=== PATIENT | male | born 1990 | race Caucasian/White ===

== ENCOUNTER 2017-02-23 08:29 | Emergency (ER) | payer OTHER ==
[2017-02-23] MEDS ORDERED: PANTOPRAZOLE 40 MG/10 ML VIAL IVP STA (08:36)
[2017-02-23] MEDS ORDERED: SODIUM CHLORIDE 0.9% 500 ML IV STA (08:36)
[2017-02-23] MEDS ORDERED: KETOROLAC 30 MG/ML 1 ML VIAL IVP STA (08:48)
--- NOTE | 2017-02-23 09:00 | ED ---
Abdominal Pain HPI - General Chief Complaint: Abdominal Pain Stated Complaint: ABDOMINAL PAIN Time Seen by Provider: 02/23/17 08:36 Source: patient, RN notes reviewed Mode of arrival: ambulatory Limitations: no limitations - History of Present Illness Initial Comments: This a 26 year old female presents emergency Department chief complaint of upper abdominal pain. Patient states pain started yesterday states it's primarily epigastric and midabdominal area that radiates to his back when it comes and goes. Patient states he had a little bit nausea no vomiting denies any diarrhea constipation. Patient has a history of peptic ulcer disease does had no prior EGD studies. Patient states that pain is really not affected by and eat or drink. Patient states that nothing seems to improve his symptoms. Patient denies fever, chills, chest pain or shortness of breath. Denies any dysuria or hematuria. - Related Data Previous Rx's Medication Instructions Recorded Acetaminophen-Codeine 300-30mg 1 tab PO Q4H PRN #20 tablet 02/23/17 [Tylenol #3] Omeprazole 40 mg PO DAILY #14 capsule. 02/23/17 Allergies Allergy/AdvReac Type Severity Reaction Status Date / Time propoxyphene Allergy Rash/Hives Verified 02/23/17 08:40 [From Adam] Review of Systems ROS Statement: Those systems with pertinent positive or pertinent negative responses have been documented in the HPI. ROS Other: All systems not noted in ROS Statement are negative. Past Medical History Additional Past Medical History / Comment(s): gastric ulcer, constipation History of Any Multi-Drug Resistant Organisms: None Reported Past Surgical History: No Surgical Hx Reported Past Psychological History: Anxiety, Bipolar Smoking Status: Former smoker Past Alcohol Use History: Occasional Past Drug Use History: None Reported General Exam Limitations: no limitations General appearance: alert, in no apparent distress Head exam: Present: atraumatic, normocephalic, normal inspection Respiratory exam: Present: normal lung sounds bilaterally. Absent: respiratory distress, wheezes, rales, rhonchi, stridor Cardiovascular Exam: Present: regular rate, normal rhythm, normal heart sounds. Absent: systolic murmur, diastolic murmur, rubs, gallop, clicks GI/Abdominal exam: Present: soft, tenderness (Mild to moderate epigastric and midabdominal tenderness), normal bowel sounds. Absent: distended, guarding, rebound, rigid Back exam: Absent: CVA tenderness (R), CVA tenderness (L) Skin exam: Present: warm, dry, intact, normal color. Absent: rash Course Vital Signs 02/23/17 08:31 Temperature 97.5 F L Pulse Rate 85 Respiratory 18 Rate Blood Pressure 142/96 O2 Sat by Pulse 96 Oximetry Medical Decision Making - Medical Decision Making 26 year old male present emergency department for epigastric, abdominal pain. Patient's labwork reviewed no acute abnormality x-ray shows no acute abnormality. Patient felt somewhat better after antiemetics and antacids. Patient is advised that he is follow-up with GI for EGD, was started on omeprazole 40 mg and explained that he'll get short course pain medication secondary to his pain at this time. Return parameters were discussed. - Lab Data Result diagrams: 02/23/17 08:46 02/23/17 08:46 Lab Results 02/23/17 02/23/17 02/23/17 Range/Units 08:46 08:46 09:30 WBC 7.7 (3.8-10.6) k/uL RBC 5.20 (4.30-5.90) m/uL Hgb 17.0 (13.0-17.5) gm/dL Hct 49.9 (39.0-53.0) % MCV 96.0 (80.0-100.0) fL MCH 32.8 (25.0-35.0) pg MCHC 34.1 (31.0-37.0) g/dL RDW 12.2 (11.5-15.5) % Plt Count 305 (150-450) k/uL Neutrophils % 68 % Lymphocytes % 20 % Monocytes % 6 % Eosinophils % 3 % Basophils % 1 % Neutrophils # 5.2 (1.3-7.7) k/uL Lymphocytes # 1.6 (1.0-4.8) k/uL Monocytes # 0.5 (0-1.0) k/uL Eosinophils # 0.2 (0-0.7) k/uL Basophils # 0.0 (0-0.2) k/uL Sodium 140 (137-145) mmol/L Potassium 4.4 (3.5-5.1) mmol/L Chloride 105 (98-107) mmol/L Carbon Dioxide 23 (22-30) mmol/L Anion Gap 12 mmol/L BUN 16 (9-20) mg/dL Creatinine 0.86 (0.66-1.25) mg/dL Est GFR (MDRD) Af Amer >60 (>60 ml/min/1.73 sqM) Est GFR (MDRD) Non-Af >60 (>60 ml/min/1.73 sqM) Glucose 110 H (74-99) mg/dL Calcium 10.0 (8.4-10.2) mg/dL Total Bilirubin 0.8 (0.2-1.3) mg/dL AST 27 (17-59) U/L ALT 39 (21-72) U/L Alkaline Phosphatase 55 (38-126) U/L Total Protein 7.6 (6.3-8.2) g/dL Albumin 4.6 (3.5-5.0) g/dL Amylase 67 (30-110) U/L Lipase 109 (23-300) U/L Urine Color Yellow Urine Appearance Clear (Clear) Urine pH 6.0 (5.0-8.0) Ur Specific Reedy 1.022 (1.001-1.035) Urine Protein Negative (Negative) Urine Glucose (UA) Negative (Negative) Urine Ketones Negative (Negative) Urine Blood Negative (Negative) Urine Nitrite Negative (Negative) Urine Bilirubin Negative (Negative) Urine Urobilinogen <2.0 (<2.0) mg/dL Ur Leukocyte Esterase Negative (Negative) Disposition Clinical Impression: Epigastric pain, Gastritis Disposition: HOME SELF-CARE Condition: Stable Instructions: Gastritis (ED) Additional Instructions: Please return to the Emergency Department if symptoms worsen or any other concerns. Prescriptions: Acetaminophen-Codeine 300-30mg [Tylenol #3] 1 tab PO Q4H PRN #20 tablet PRN Reason: pain Omeprazole 40 mg PO DAILY #14 capsule.dr Referrals: None,Stated [Primary Care Provider] - 1-2 days Catie Abdul MD [STAFF PHYSICIAN] - 1-2 days Time of Disposition: 10:08
[2017-02-23 09:05] LABS: Basophils % (A) 1 %; Eosinophils # (A) 0.2 k/uL (0-0.7); Eosinophils % (A) 3 %; HCT 49.9 % (39.0-53.0); Lymphocytes # (A) 1.6 k/uL (1.0-4.8); Lymphocytes % (A) 20 %; MCH 32.8 pg (25.0-35.0); MCHC 34.1 g/dL (31.0-37.0); Mean Platelet Volume 6.9; Monocytes # (A) 0.5 k/uL (0-1.0); Monocytes % (A) 6 %; Neutrophils # (A) 5.2 k/uL (1.3-7.7); Neutrophils % (A) 68 %; Platelet Count 305 k/uL (150-450); RDW 12.2 % (11.5-15.5); WBC 7.7 k/uL (3.8-10.6)
[2017-02-23 09:17] LABS: ALT 39 U/L (21-72); AST 27 U/L (17-59); Albumin 4.6 g/dL (3.5-5.0); Alkaline Phosphatase 55 U/L (38-126); Amylase 67 U/L (30-110); Anion Gap 12 mmol/L; Blood Urea Nitrogen 16 mg/dL (9-20); Carbon Dioxide 23 mmol/L (22-30); Chloride 105 mmol/L (98-107); Glucose 110 mg/dL (74-99); Lipase 109 U/L (23-300); Potassium 4.4 mmol/L (3.5-5.1); Sodium 140 mmol/L (137-145); Total Bilirubin 0.8 mg/dL (0.2-1.3); Total Protein 7.6 g/dL (6.3-8.2)
--- NOTE | 2017-02-23 09:19 | XR ---
EXAMINATION TYPE: XR KUB DATE OF EXAM: 02/23/2017 COMPARISON: NONE HISTORY: Pain TECHNIQUE: One view abdominal series FINDINGS: The osseous structures are intact. The bowel gas pattern is nonspecific. Lung bases are clear. Calc ifications in the pelvis nonspecific. IMPRESSION: 1. Nonspecific abdomen.
[2017-02-23] MEDS ORDERED: MORPHINE SULFATE 2 MG/ML SYRINGE IVP ONE (09:36)
[2017-02-23] MEDS ORDERED: ONDANSETRON 4 MG/2 ML VIAL IVP STA (09:36)
[2017-02-23 09:55] LABS: Appearance,Urine Clear (Clear); Bilirubin,Urine Negative (Negative); Blood,Urine Negative (Negative); Color,Urine Yellow; Glucose,Urine (UA) Negative (Negative); Ketones,Urine Negative (Negative); Leukocyte Esterase,Urine Negative (Negative); Nitrite,Urine Negative (Negative); Protein,Urine Negative (Negative); Specific Gravity,Urine 1.022 (1.001-1.035); Urobilinogen,Urine <2.0 mg/dL (<2.0)
[2017-02-23] MEDS ORDERED: MAG HYDROX/AL HYDROX/SIMETH 30 ML, HYOSCYAMINE ELIXIR 10 ML, CIMETIDINE HCL 300 MG PO STA ×3 (10:06)
[2017-02-23 10:09] VITALS: BP 139/85; PULSE 67; RESP 19; TEMP 98.3
== END 2017-02-23 10:20 | disposition home or self-care (01) ==
LOC: EC 08:29
DX: Z88.5 Allergy status to narcotic agent (principal); Z87.891 Personal history of nicotine dependence; K29.70 Gastritis, unspecified, without bleeding
CPT/HCPCS: 36415; 80053; 82150; 83690; 85025; 81003; 74018; 99284; 96374; 96375 ×3; 96361; J2405; J1885; J2270; C9113

== ENCOUNTER 2019-07-03 09:37 | Emergency (ER) | payer OTHER ==
[2019-07-03 09:43] VITALS: PULSE 75; RESP 18; TEMP 98.2
[2019-07-03] MEDS ORDERED: KETOROLAC 30 MG/ML 1 ML VIAL IM STA (09:55)
[2019-07-03] MEDS ORDERED: CYCLOBENZAPRINE 10 MG TAB PO STA (09:55)
--- NOTE | 2019-07-03 10:04 | ED ---
Neck Injury/Pain HPI - General Chief Complaint: Neck Pain/Injury Stated Complaint: stiff neck Time Seen by Provider: 07/03/19 09:47 Mode of arrival: ambulatory Limitations: no limitations - History of Present Illness Initial Comments: Patient is a 28-year-old male presenting to emergency Department with chief complaint of neck pain. Patient reports the pain began Monday and this has persisted. Patient reports the day before the onset of pain was working on his car and was standing on upper physician for prolonged periods of time. Patient reports the pain is exacerbated with left rotation but not so much with flexion and extension. Patient reports difficulty sleeping because he is not able to find a comfortable position. Patient reports taking [id number] analgesics minimal improvement. Patient denies any night sweats fevers or chills. Denies neck stiffness. Denies any headaches, visual changes or generalized malaise. - Related Data Previous Rx's Medication Instructions Recorded Acetaminophen-Codeine 300-30mg 1 tab PO Q4H PRN #20 tablet 02/23/17 [Tylenol #3] Omeprazole 40 mg PO DAILY #14 capsule. 02/23/17 Cyclobenzaprine [Flexeril] 10 mg PO TID PRN #15 tab 07/03/19 Allergies Allergy/AdvReac Type Severity Reaction Status Date / Time propoxyphene Allergy Rash/Hives Verified 07/03/19 09:43 [From Adam] Review of Systems ROS Statement: Those systems with pertinent positive or pertinent negative responses have been documented in the HPI. ROS Other: All systems not noted in ROS Statement are negative. Past Medical History Past Medical History: Hypertension Additional Past Medical History / Comment(s): gastric ulcer, constipation History of Any Multi-Drug Resistant Organisms: None Reported Past Surgical History: No Surgical Hx Reported Past Psychological History: Anxiety, Bipolar Smoking Status: Former smoker Past Alcohol Use History: Occasional Past Drug Use History: None Reported General Exam Limitations: no limitations General appearance: alert, in no apparent distress Head exam: Present: atraumatic, normocephalic, normal inspection Eye exam: Present: normal appearance, PERRL, EOMI Pupils: Present: normal accommodation ENT exam: Present: normal exam, normal oropharynx, mucous membranes moist Neck exam: Present: normal inspection, tenderness (Personal tenderness.), full ROM. Absent: meningismus, lymphadenopathy, other (No signs of nuchal rigidity. Negative Brudzinski sign.) Respiratory exam: Present: normal lung sounds bilaterally. Absent: respiratory distress, wheezes, rales Cardiovascular Exam: Present: regular rate, normal rhythm, normal heart sounds Extremities exam: Present: normal inspection, full ROM Back exam: Present: normal inspection, full ROM Neurological exam: Present: alert, oriented X3 Psychiatric exam: Present: normal affect, normal mood Skin exam: Present: warm, dry, intact, normal color Course Vital Signs 07/03/19 07/03/19 07/03/19 09:41 10:01 11:30 Temperature 98.2 F Pulse Rate 75 75 Respiratory 18 18 Rate Blood Pressure 143/103 130/84 O2 Sat by Pulse 100 98 98 Oximetry Medical Decision Making - Medical Decision Making Patient is a 28-year-old male presenting to emergency Department with chief complaint of back pain. On exam patient does have bilateral paraspinal cervical tenderness. Patient is exacerbated with right rotation. No midline cervical tenderness. No masses fever or chills. Negative Brudzinski sign. No signs of meningismus or nuchal rigidity. Patient was given Flexeril and Toradol. Reev aluation patient reports improvement in symptoms. X-ray of the cervical spine is unremarkable. I suspect the patient suffered a cervical strain of the neck secondary to recent working on his car. Advised the patient to apply warm compress an alternate between Tylenol and Motrin for pain control. He'll be discharged with Flexeril. Advised about possible side effects of medication. Return parameters thoroughly discussed with patient was understanding and agreeable. Case discussed with physician. Disposition Clinical Impression: Strain of neck muscle, Neck pain Disposition: HOME SELF-CARE Condition: Stable Instructions (If sedation given, give patient instructions): Cervical Sprain (ED) Additional Instructions: Apply warm compress in the region of tenderness. Take prescribed medication as directed. Return to emergency department if symptoms worsen. Alternate between Tylenol Motrin for pain control. Prescriptions: Cyclobenzaprine [Flexeril] 10 mg PO TID PRN #15 tab PRN Reason: Muscle Spasm Is patient prescribed a controlled substance at d/c from ED?: No Referrals: Audi Aaron MD [Primary Care Provider] - 1-2 days Time of Disposition: 11:10
--- NOTE | 2019-07-03 10:49 | XR ---
EXAMINATION TYPE: XR cervical spine comp DATE OF EXAM: 07/03/2019 TECHNIQUE: Frontal, lateral, oblique, swimmers, and open mouth view of the cervical spine are obtaine d. HISTORY: cervical pain posterior neck pain for 2 days. COMPARISON: None FINDINGS: The cervical spine is only successfully visualized from C1 through superior C7 level despi te attempted swimmer's view due to significant osseous overlap, it is somewhat straightened in align ent without evidence of acute fracture or dislocation. Suboptimal evaluation of C7 vertebra and C7-T1 disc space. The pre-vertebral soft tissue appears within normal limits. The C1-C2 articulation is within normal limits on the open mouth view. Vertebral body heights and disc space heights are fairly well maintained. Mild anterior spurring C5-C6 and C6-C7 levels. The oblique images are within normal limits. Overlying soft tissue is unremarkable. IMPRESSION: As above.
[2019-07-03] MEDS ORDERED: CYCLOBENZAPRINE 10MG STARTER 3 TAB BTL PO STA (11:09)
[2019-07-03 11:31] VITALS: BP 130/84
== END 2019-07-03 11:34 | disposition home or self-care (01) ==
LOC: EC 09:37
DX: S16.1XXA Strain of muscle, fascia and tendon at neck level, initial encounter (principal); Z88.5 Allergy status to narcotic agent; Z87.891 Personal history of nicotine dependence
CPT/HCPCS: 72050; 99283; 96372; J1885

== ENCOUNTER 2020-02-26 16:23 | Emergency (ER) | payer OTHER ==
[2020-02-26] MEDS ORDERED: SODIUM CHLORIDE 0.9% 500 ML 500 ML IV STA (17:07)
--- NOTE | 2020-02-26 17:16 | ED ---
General Adult HPI - General Source: patient Mode of arrival: ambulatory Limitations: no limitations <Keshia Nye - Last Filed: 02/26/20 18:57> <Bin Daniel - Last Filed: 02/26/20 20:43> - General Chief complaint: Shortness of Breath Stated complaint: sob Time Seen by Provider: 02/26/20 17:02 - History of Present Illness Initial comments: 29-year-old male presenting today for chief complaint of too many whippets. Patient states he uses nitrous oxide from cooking spray for making whipped cream. he states that he used a lot more today than usual. he states he was out of it. he didnt even remember his girlfriend driving him here and doesnt want evaluation. Patient states she just feels sleepy he states he feels slightly short of breath denies chest pain chest pressure nausea vomiting headache dizzi ness. Girlfriend denies any seizure activity but states that when he doesnt do the whip its he get shakiness. Patient denies any other drug use he denies alcohol ingestion. He denies a follows head injury. Patient denies any visual changes weakness sensation deficits Denies parathesias. patient has no additional complaints. he appears sleepy but easily aroused on history taking, answering questions appropriately. (Keshia Nye) - Related Data Home Medications Medication Instructions Recorded Confirmed ARIPiprazole [Abilify] 5 mg PO DAILY 02/26/20 02/26/20 Atorvastatin [Lipitor] 20 mg PO DAILY 02/26/20 02/26/20 Benazepril HCl [Lotensin] 20 mg PO DAILY 02/26/20 02/26/20 QUEtiapine [SEROquel] 50 mg PO HS 02/26/20 02/26/20 Venlafaxine HCl ER [Effexor Xr] 150 mg PO DAILY 02/26/20 02/26/20 amLODIPine [Norvasc] 5 mg PO DAILY 02/26/20 02/26/20 Allergies Allergy/AdvReac Type Severity Reaction Status Date / Time propoxyphene Allergy Rash/Hives Verified 02/26/20 18:19 [From Becki-Robbie] Review of Systems ROS Other: All systems not noted in ROS Statement are negative. <Keshia Nye - Last Filed: 02/26/20 18:57> ROS Other: All systems not noted in ROS Statement are negative. <Bin Daniel Darek - Last Filed: 02/26/20 20:43> ROS Statement: Those systems with pertinent positive or pertinent negative responses have been documented in the HPI. Past Medical History Past Medical History: Hypertension Additional Past Medical History / Comment(s): gastric ulcer, constipation, History of Any Multi-Drug Resistant Organisms: None Reported Past Surgical History: No Surgical Hx Reported Past Psychological History: Anxiety, Bipolar Smoking Status: Former smoker Past Alcohol Use History: Occasional Past Drug Use History: None Reported <Keshia Nye - Last Filed: 02/26/20 18:57> General Exam Limitations: no limitations <Keshia Nye - Last Filed: 02/26/20 18:57> - General Exam Comments Initial Comments: General: The patient is awake and alert, in no distress Eye: Pupils are equal, round and reactive to light, extra-ocular movements are intact. No nystagmus. There is normal conjunctiva bilaterally. No signs of icterus. Ears, nose, mouth and throat: There are moist mucous membranes and no oral lesions. Neck: The neck is supple, there is no tenderness or JVD. Cardiovascular: There is a regular rate and rhythm. No murmur, rub or gallop is appreciated. Respiratory: Lungs are clear to auscultation, respirations are non-labored, breath sounds are equal. No wheezes, stridor, rales, or rhonchi. Gastrointestinal: Soft, non-distended, non-tender abdomen without masses or organomegaly noted. There is no rebound or guarding present. Musculoskeletal: Normal ROM, no tenderness. Strength 5/5. Sensation intact. Radial and DP pulses equal bilaterally 2+. Neurological: A&O x 3. CN II-XII intact, There are no obvious motor or sensory deficits. Coordination appears grossly intact. Speech is normal. Skin: Skin is warm and dry and no rashes or lesions are noted. Psychiatric: Cooperative, appropriate mood & affect, normal judgment. (Keshia Nye) Course Vital Signs 02/26/20 02/26/20 02/26/20 16:45 18:05 19:00 Temperature 99.2 F Pulse Rate 106 H 90 73 Respiratory 24 22 20 Rate Blood Pressure 126/69 112/99 134/89 O2 Sat by Pulse 98 98 99 Oximetry 02/26/20 20:26 Temperature 98.4 F Pulse Rate 83 Respiratory 22 Rate Blood Pressure 137/99 O2 Sat by Pulse 100 Oximetry Medical Decision Making - Lab Data Result diagrams: 02/26/20 17:13 02/26/20 17:13 <Keshia Nye - Last Filed: 02/26/20 18:57> - Lab Data Result diagrams: 02/26/20 17:13 02/26/20 17:13 <Bin Daniel - Last Filed: 02/26/20 20:43> - Medical Decision Making poison control contacted, recommended supportive treatment. no additional recommendations. pt will be monitored in ER. He was evaluated by attending who took patient sign out at end of shift, Dr Daniel. (Keshia Nye) Patient here continues to be briefly by Alejandrina Howard PA. Patient is here today for difficulty in breathing. Patient abuses nitrous oxide in the form of whippets. Vital signs upon arrival are within acceptable limits. Labs are unremarkable. poison control had no recommendations, patient observed in ER for 4 hours. patient in stable medical condition. patient will be discharged. (Bin Daniel) - Lab Data Lab Results 02/26/20 02/26/20 02/26/20 Range/Units 17:13 17:13 17:13 WBC 5.6 (3.8-10.6) k/uL RBC 3.75 L (4.30-5.90) m/uL Hgb 13.3 (13.0-17.5) gm/dL Hct 37.1 L (39.0-53.0) % MCV 99.0 (80.0-100.0) fL MCH 35.4 H (25.0-35.0) pg MCHC 35.8 (31.0-37.0) g/dL RDW 14.2 (11.5-15.5) % Plt Count 338 (150-450) k/uL MPV 7.1 Neutrophils % 57 % Lymphocytes % 30 % Monocytes % 6 % Eosinophils % 3 % Basophils % 2 % Neutrophils # 3.2 (1.3-7.7) k/uL Lymphocytes # 1.7 (1.0-4.8) k/uL Monocytes # 0.3 (0-1.0) k/uL Eosinophils # 0.2 (0-0.7) k/uL Basophils # 0.1 (0-0.2) k/uL PT 10.6 (9.0-12.0) sec INR 1.0 (<1.2) APTT 21.4 L (22.0-30.0) sec VBG pH (7.31-7.41) VBG pCO2 (37-51) mmHg VBG HCO3 (24-28) mmol/L Sodium 143 (137-145) mmol/L Potassium 3.9 (3.5-5.1) mmol/L Chloride 111 H (98-107) mmol/L Carbon Dioxide 23 (22-30) mmol/L Anion Gap 9 mmol/L BUN 14 (9-20) mg/dL Creatinine 0.89 (0.66-1.25) mg/dL Est GFR (CKD-EPI)AfAm >90 (>60 ml/min/1.73 sqM) Est GFR (CKD-EPI)NonAf >90 (>60 ml/min/1.73 sqM) Glucose 112 H (74-99) mg/dL Plasma Lactic Acid Danie (0.7-2.0) mmol/L Calcium 9.0 (8.4-10.2) mg/dL Magnesium 1.8 (1.6-2.3) mg/dL Total Bilirubin 0.3 (0.2-1.3) mg/dL AST 33 (17-59) U/L ALT 69 H (4-49) U/L Alkaline Phosphatase 54 (38-126) U/L Troponin I (0.000-0.034) ng/mL Total Protein 6.7 (6.3-8.2) g/dL Albumin 4.0 (3.5-5.0) g/dL Salicylates mg/dL Urine Opiates Screen (NotDetected) Ur Oxycodone Screen (NotDetected) Urine Methadone Screen (NotDetected) Ur Propoxyphene Screen (NotDetected) Acetaminophen ug/mL Ur Barbiturates Screen (NotDetected) U Tricyclic Antidepress (NotDetected) Ur Phencyclidine Scrn (NotDetected) Ur Amphetamines Screen (NotDetected) U Methamphetamines Scrn (NotDetected) U Benzodiazepines Scrn (NotDetected) Urine Cocaine Screen (NotDetected) U Marijuana (THC) Screen (NotDetected) Serum Alcohol <10 mg/dL 02/26/20 02/26/20 02/26/20 Range/Units 17:13 17:13 17:32 WBC (3.8-10.6) k/uL RBC (4.30-5.90) m/uL Hgb (13.0-17.5) gm/dL Hct (39.0-53.0) % MCV (80.0-100.0) fL MCH (25.0-35.0) pg MCHC (31.0-37.0) g/dL RDW (11.5-15.5) % Plt Count (150-450) k/uL MPV Neutrophils % % Lymphocytes % % Monocytes % % Eosinophils % % Basophils % % Neutrophils # (1.3-7.7) k/uL Lymphocytes # (1.0-4.8) k/uL Monocytes # (0-1.0) k/uL Eosinophils # (0-0.7) k/uL Basophils # (0-0.2) k/uL PT (9.0-12.0) sec INR (<1.2) APTT (22.0-30.0) sec VBG pH 7.44 H (7.31-7.41) VBG pCO2 33 L (37-51) mmHg VBG HCO3 22 L (24-28) mmol/L Sodium (137-145) mmol/L Potassium (3.5-5.1) mmol/L Chloride (98-107) mmol/L Carbon Dioxide (22-30) mmol/L Anion Gap mmol/L BUN (9-20) mg/dL Creatinine (0.66-1.25) mg/dL Est GFR (CKD-EPI)AfAm (>60 ml/min/1.73 sqM) Est GFR (CKD-EPI)NonAf (>60 ml/min/1.73 sqM) Glucose (74-99) mg/dL Plasma Lactic Acid Danie 1.8 (0.7-2.0) mmol/L Calcium (8.4-10.2) mg/dL Magnesium (1.6-2.3) mg/dL Total Bilirubin (0.2-1.3) mg/dL AST (17-59) U/L ALT (4-49) U/L Alkaline Phosphatase (38-126) U/L Troponin I <0.012 (0.000-0.034) ng/mL Total Protein (6.3-8.2) g/dL Albumin (3.5-5.0) g/dL Salicylates mg/dL Urine Opiates Screen (NotDetected) Ur Oxycodone Screen (NotDetected) Urine Methadone Screen (NotDetected) Ur Propoxyphene Screen (NotDetected) Acetaminophen ug/mL Ur Barbiturates Screen (NotDetected) U Tricyclic Antidepress (NotDetected) Ur Phencyclidine Scrn (NotDetected) Ur Amphetamines Screen (NotDetected) U Methamphetamines Scrn (NotDetected) U Benzodiazepines Scrn (NotDetected) Urine Cocaine Screen (NotDetected) U Marijuana (THC) Screen (NotDetected) Serum Alcohol mg/dL 02/26/20 02/26/20 Range/Units 19:27 19:41 WBC (3.8-10.6) k/uL RBC (4.30-5.90) m/uL Hgb (13.0-17.5) gm/dL Hct (39.0-53.0) % MCV (80.0-100.0) fL MCH (25.0-35.0) pg MCHC (31.0-37.0) g/dL RDW (11.5-15.5) % Plt Count (150-450) k/uL MPV Neutrophils % % Lymphocytes % % Monocytes % % Eosinophils % % Basophils % % Neutrophils # (1.3-7.7) k/uL Lymphocytes # (1.0-4.8) k/uL Monocytes # (0-1.0) k/uL Eosinophils # (0-0.7) k/uL Basophils # (0-0.2) k/uL PT (9.0-12.0) sec INR (<1.2) APTT (22.0-30.0) sec VBG pH (7.31-7.41) VBG pCO2 (37-51) mmHg VBG HCO3 (24-28) mmol/L Sodium (137-145) mmol/L Potassium (3.5-5.1) mmol/L Chloride (98-107) mmol/L Carbon Dioxide (22-30) mmol/L Anion Gap mmol/L BUN (9-20) mg/dL Creatinine (0.66-1.25) mg/dL Est GFR (CKD-EPI)AfAm (>60 ml/min/1.73 sqM) Est GFR (CKD-EPI)NonAf (>60 ml/min/1.73 sqM) Glucose (74-99) mg/dL Plasma Lactic Acid Danie (0.7-2.0) mmol/L Calcium (8.4-10.2) mg/dL Magnesium (1.6-2.3) mg/dL Total Bilirubin (0.2-1.3) mg/dL AST (17-59) U/L ALT (4-49) U/L Alkaline Phosphatase (38-126) U/L Troponin I (0.000-0.034) ng/mL Total Protein (6.3-8.2) g/dL Albumin (3.5-5.0) g/dL Salicylates <1.0 mg/dL Urine Opiates Screen Not Detected (NotDetected) Ur Oxycodone Screen Not Detected (NotDetected) Urine Methadone Screen Not Detected (NotDetected) Ur Propoxyphene Screen Not Detected (NotDetected) Acetaminophen <10.0 ug/mL Ur Barbiturates Screen Not Detected (NotDetected) U Tricyclic Antidepress Not Detected (NotDetected) Ur Phencyclidine Scrn Not Detected (NotDetected) Ur Amphetamines Screen Not Detected (NotDetected) U Methamphetamines Scrn Not Detected (NotDetected) U Benzodiazepines Scrn Detected H (NotDetected) Urine Cocaine Screen Not Detected (NotDetected) U Marijuana (THC) Screen Detected H (NotDetected) Serum Alcohol mg/dL Disposition <Keshia Nye L - Last Filed: 02/26/20 18:57> Is patient prescribed a controlled substance at d/c from ED?: No Time of Disposition: 20:43 <Bin Daniel - Last Filed: 02/26/20 20:43> Clinical Impression: Dyspnea Disposition: HOME SELF-CARE Condition: Good Instructions (If sedation given, give patient instructions): Dyspnea (ED) Referrals: Audi Aaron MD [Primary Care Provider] - 1-2 days
[2020-02-26 17:28] LABS: Basophils # (A) 0.1 k/uL (0-0.2); Basophils % (A) 2 %; Eosinophils # (A) 0.2 k/uL (0-0.7); Eosinophils % (A) 3 %; HCT 37.1 % (39.0-53.0); HGB 13.3 gm/dL (13.0-17.5); Lymphocytes # (A) 1.7 k/uL (1.0-4.8); Lymphocytes % (A) 30 %; MCH 35.4 pg (25.0-35.0); MCHC 35.8 g/dL (31.0-37.0); Mean Platelet Volume 7.1; Monocytes # (A) 0.3 k/uL (0-1.0); Monocytes % (A) 6 %; Neutrophils # (A) 3.2 k/uL (1.3-7.7); Neutrophils % (A) 57 %; Platelet Count 338 k/uL (150-450); RBC 3.75 m/uL (4.30-5.90); RDW 14.2 % (11.5-15.5); WBC 5.6 k/uL (3.8-10.6)
[2020-02-26 17:54] LABS: ALT 69 U/L (4-49); AST 33 U/L (17-59); African American GFR (CKD) >90 (>60 ml/min/1.73 sqM); Alcohol <10 mg/dL; Alkaline Phosphatase 54 U/L (38-126); Anion Gap 9 mmol/L; Blood Urea Nitrogen 14 mg/dL (9-20); Carbon Dioxide 23 mmol/L (22-30); Chloride 111 mmol/L (98-107); Glucose 112 mg/dL (74-99); Magnesium 1.8 mg/dL (1.6-2.3); Non-African American GFR(CKD) >90 (>60 ml/min/1.73 sqM); Potassium 3.9 mmol/L (3.5-5.1); Sodium 143 mmol/L (137-145); Total Bilirubin 0.3 mg/dL (0.2-1.3); Total Protein 6.7 g/dL (6.3-8.2)
[2020-02-26 17:59] LABS: Prothrombin Time 10.6 sec (9.0-12.0)
[2020-02-26 18:02] LABS: Partial Thromboplastin Time 21.4 sec (22.0-30.0)
[2020-02-26 18:02] LABS: VBG PH 7.44 (7.31-7.41)
--- NOTE | 2020-02-26 18:02 | CT ---
EXAMINATION TYPE: CT brain wo con DATE OF EXAM: 02/26/2020 COMPARISON: None available. HISTORY: ams CT DLP: 1092.4 mGycm. Automated Exposure Control for Dose Reduction was Utilized. TECHNIQUE: CT scan of the head is performed without contrast. FINDINGS: There is no acute intracranial hemorrhage, mass effect, or midline shift identified. The ventricles and sulci are within normal limits in size. The globes are intact and the visualized sin uses are clear. IMPRESSION: No acute intracranial hemorrhage, mass effect, or midline shift is seen.
--- NOTE | 2020-02-26 18:11 | XR ---
EXAMINATION TYPE: XR chest 2V DATE OF EXAM: 02/26/2020 COMPARISON: NONE HISTORY: Difficulty breathing. TECHNIQUE: Frontal and lateral views of the chest are obtained. FINDINGS: There is no focal air space opacity, pleural effusion, or pneumothorax seen. The cardiac silhouette size is within normal limits. The osseous structures are intact. IMPRESSION: No acute cardiopulmonary process.
[2020-02-26 19:52] LABS: Amphetamine Screen,Urine Not Detected (NotDetected); Barbiturate Screen,Urine Not Detected (NotDetected); Benzodiazepines Screen,Urine Detected (NotDetected); Cocaine Screen,Urine Not Detected (NotDetected); Methadone Screen, Urine Not Detected (NotDetected); Opiate Screen,Urine Not Detected (NotDetected); Oxycodone Screen, Urine Not Detected (NotDetected); Phencyclidine Screen,Urine Not Detected (NotDetected); Tricyclic Antidepressant,Urine Not Detected (NotDetected); Urn Cannabinoid Scrn Detected (NotDetected)
[2020-02-26 20:03] LABS: Acetaminophen <10.0 ug/mL; Salicylate <1.0 mg/dL
[2020-02-26 20:28] VITALS: PULSE 83; RESP 22; TEMP 98.4
[2020-02-26 20:29] VITALS: BP 137/99
== END 2020-02-26 21:04 | disposition home or self-care (01) ==
LOC: EC 16:23
DX: R06.00 Dyspnea, unspecified (principal); I10 Essential (primary) hypertension; F41.9 Anxiety disorder, unspecified; F31.9 Bipolar disorder, unspecified; Z79.899 Other long term (current) drug therapy; Z88.8 Allergy status to other drugs, medicaments and biological substances; Z87.891 Personal history of nicotine dependence
CPT/HCPCS: 36415; 93005; 80053; 82803; 83605; 83735; 84484; 85025; 85610; 85730; 80306; 83520; 80143; 71046; 70450; 99285; 96360; 96361; G0480; 80320